=== PATIENT | male | born 1935 | race Caucasian/White ===

== ENCOUNTER 2018-01-22 18:40 | Emergency (ER) | payer MEDICAID | END 2018-01-22 21:45 | disposition home or self-care (01) | LOC: FTE 18:40 | DX: S61.412A Laceration without foreign body of left hand, initial encounter (principal); S52.002A Unspecified fracture of upper end of left ulna, initial encounter for closed fracture; W18.30XA Fall on same level, unspecified, initial encounter; Y92.9 Unspecified place or not applicable | CPT/HCPCS: 12002; 70140; 73080-LT; 99283-25 ==

== ENCOUNTER 2018-01-25 10:31 | Emergency (ER) | payer MEDICAID | END 2018-01-25 11:52 | disposition home or self-care (01) | LOC: FTE 10:31 | DX: Z48.01 Encounter for change or removal of surgical wound dressing (principal) | CPT/HCPCS: 99281; Z7502 ==

== ENCOUNTER 2018-08-05 21:46 | Emergency (ER) | payer MEDICARE, OTHER, MEDICAID | END 2018-08-06 00:37 | disposition home or self-care (01) | LOC: E/R 08-06 00:37 | DX: L03.113 Cellulitis of right upper limb (principal); R40.2142 Coma scale, eyes open, spontaneous, at arrival to emergency department; R40.2252 Coma scale, best verbal response, oriented, at arrival to emergency department; R40.2362 Coma scale, best motor response, obeys commands, at arrival to emergency department; I12.9 Hypertensive chronic kidney disease with stage 1 through stage 4 chronic kidney disease, or unspecified chronic kidney disease; N18.9 Chronic kidney disease, unspecified; E03.9 Hypothyroidism, unspecified | CPT/HCPCS: 73110; 73110-RT; 73130-RT; 99283-25 ==